=== PATIENT | female | born 1940 | race Caucasian/White ===

== ENCOUNTER 2019-08-13 17:08 | Inpatient (IN) | payer MEDICARE, OTHER ==
[~2019-08-13] VITALS: Ht 165.1 cm; Wt 93.0 kg
[~2019-08-13 17:08] MED LIST: SEPTDS PO
[2019-08-13] MEDS ORDERED: REMERON15 M2 PO (17:45)
[2019-08-13] MEDS ORDERED: BUSPIRONE10 MG PO (17:45)
[2019-08-13] MEDS ORDERED: B121000 MCG/1 IM (17:46)
[2019-08-13] MEDS ORDERED: FLONASE ALLERG9.9 ML NAS (17:47)
[2019-08-13] MEDS ORDERED: ASPIRIN81 M1 PO (17:47)
[2019-08-13] MEDS ORDERED: CLARITIN10 MG PO (17:48)
[2019-08-13] MEDS ORDERED: VENTOLIN 02.5 MG/3 M INH (17:49)
[2019-08-13] MEDS ORDERED: BIOFREEZE118 ML T (17:50)
[2019-08-13] MEDS ORDERED: VALIUM5 MG PO (17:50)
[2019-08-13] MEDS ORDERED: KENALOG 0.1%80 GM T (17:51)
[2019-08-13] MEDS ORDERED: VITAMIN D310000 UNIT PO (17:52)
[2019-08-13] MEDS ORDERED: NIZORAL AD SHA120 ML T (17:54)
[2019-08-13] MEDS ORDERED: METHOTREXATE2.5 M1 PO (17:55)
[2019-08-13] MEDS ORDERED: Mysoline50 MG PO (17:55)
[2019-08-13] MEDS ORDERED: MYRBETRIQ50 M1 PO (17:55)
[2019-08-13] MEDS ORDERED: VITAMIN C250 M2 PO (17:56)
[2019-08-13] MEDS ORDERED: SYSTANE ULTRA 010 M1 OU (17:57)
[2019-08-13] MEDS ORDERED: TOPCARE OMEPRAZ20 MG PO (17:57)
[2019-08-13] MEDS ORDERED: SYMB160 INH (17:58)
[2019-08-13] MEDS ORDERED: CRANBERRY250 MG PO (17:58)
[2019-08-13] MEDS ORDERED: LASIX40 MG PO (17:59)
[2019-08-13] MEDS ORDERED: COLACE100 MG PO (17:59)
[2019-08-13] MEDS ORDERED: KLOR-CON M2020 ME1 PO (18:00)
[2019-08-13] MEDS ORDERED: ROBITUSSIN-DM 110 ML PO (18:02)
[2019-08-13] MEDS ORDERED: SYSTANE 0.3-0.415 ML OU (18:03)
[2019-08-13] MEDS ORDERED: HYDROCORTISONE59 M1 T (18:03)
[2019-08-13] MEDS ORDERED: PROAIR HFA8.5 GM INH (18:04)
[2019-08-13 19:47] VITALS: BP 126/82
[2019-08-13 20:21] LABS: BASO % 0.6 % (0.0-1.0); EOS # 0.4 10*3/uL (0.0-0.4); EOS % 5.7 % (1.0-4.0); HEMATOCRIT 44.2 % (37.0-47.0); HEMOGLOBIN 13.6 g/dl (12.0-16.0); LYMPH # 1.4 10*3/uL (1.3-4.4); LYMPH % 19.9 % (27.0-41.0); MEAN CELL VOLUME 97.6 fl (81.0-99.0); MEAN CORPUSCULAR HGB CONC 30.8 g/dl (33.0-37.0); MEAN PLATELET VOLUME 9.9 fl (9.6-12.3); MONO # 0.4 10*3/uL (0.1-1.0); MONO % 5.6 % (3.0-9.0); NEUT # 4.6 10*3/uL (2.3-7.9); NEUT % 67.6 % (47.0-73.0); PLATELET COUNT AUTOMATED 407 10*3/uL (130-400); RED BLOOD COUNT 4.53 10*6/uL (4.10-5.10); RED CELL DISTRI WIDTH 16.9 % (0-14.5); WHITE BLOOD COUNT 6.8 10*3/uL (4.8-10.8)
[2019-08-13 20:51] LABS: ALBUMIN 3.1 gm/dl (3.1-4.5); CREATININE 1.16 mg/dL (0.55-1.02); POTASSIUM 4.1 mmol/L (3.5-5.1); TOTAL PROTEIN 6.9 gm/dL (6.4-8.2)
[2019-08-13 20:57] LABS: THYROID STIM HORMONE (HS) 1.58 uIU/ml (0.358-4.75)
[2019-08-13 20:58] LABS: VITAMIN D, 25-HYDROXY 50.3 ng/mL (30-100)
[2019-08-14 07:19] LABS: BILIRUBIN NEGATIVE (NEGATIVE); BLOOD NEGATIVE (NEGATIVE); CLARITY SL CLOUDY (CLEAR); COLOR YELLOW (YELLOW); GLUCOSE NEGATIVE (NEGATIVE); KETONE NEGATIVE (NEGATIVE); LEUKO ESTERASE 3+ (NEGATIVE); NITRITE POSITIVE (NEGATIVE); PH 7.5 (5.0-9.0); UROBILINOGEN 0.2 E.U./dl (0.2-1.0)
[2019-08-14 07:20] LABS: CHOLESTEROL 174 mg/dL (<200); TRIGLYCERIDES 129 mg/dl (<150); VLDL CHOLESTEROL 26 mg/dL (6-40)
[2019-08-14 07:20] LABS: BACTERIA 3+
[2019-08-14 07:21] LABS: HDL CHOLESTEROL 45 mg/dl (40-60); LDL CHOLESTEROL 103 mg/dL (9-159)
[2019-08-14 08:03] VITALS: BP 130/62
[2019-08-14 20:00] VITALS: BP 116/65
[2019-08-15 08:01] VITALS: BP 129/75
[2019-08-15 20:00] VITALS: BP 140/76
[2019-08-16 07:48] VITALS: BP 119/60
[2019-08-16 20:00] VITALS: BP 115/71
[2019-08-17 08:00] VITALS: BP 127/73
[2019-08-17 19:45] VITALS: BP 110/63
[2019-08-18 07:41] VITALS: BP 113/63
[2019-08-18 19:43] VITALS: BP 126/70
[2019-08-19 08:00] VITALS: BP 120/84
[2019-08-19 19:33] VITALS: BP 121/82
[2019-08-20 08:00] VITALS: BP 131/83
[2019-08-20 20:00] VITALS: BP 121/72
[2019-08-21 08:00] VITALS: BP 124/88
[2019-08-21 19:40] VITALS: BP 125/86
[2019-08-22] MEDS ORDERED: NORTRIPTYLINE H50 M1 PO (07:49)
[2019-08-22] MEDS ORDERED: MINIPRESS1 M1 PO (07:49)
[2019-08-22 07:58] VITALS: BP 112/65
== END 2019-08-22 16:55 | DRG 885 ==
LOC: 3N 17:08
PROVIDERS: ADMIT Psychiatry & Neurology Psychiatry
DX: F33.2 Major depressive disorder, recurrent severe without psychotic features (principal); F23 Brief psychotic disorder; M19.90 Unspecified osteoarthritis, unspecified site; F34.1 Dysthymic disorder; M21.371 Foot drop, right foot; M51.36 Other intervertebral disc degeneration, lumbar region; H90.3 Sensorineural hearing loss, bilateral; F43.10 Post-traumatic stress disorder, unspecified; M21.372 Foot drop, left foot; K59.00 Constipation, unspecified; E78.5 Hyperlipidemia, unspecified; F41.9 Anxiety disorder, unspecified; K21.9 Gastro-esophageal reflux disease without esophagitis; Z96.653 Presence of artificial knee joint, bilateral; N32.81 Overactive bladder; I10 Essential (primary) hypertension; J45.20 Mild intermittent asthma, uncomplicated; Z88.6 Allergy status to analgesic agent; Z91.041 Radiographic dye allergy status; Z88.8 Allergy status to other drugs, medicaments and biological substances; Z91.013 Allergy to seafood; Z90.710 Acquired absence of both cervix and uterus; Z79.899 Other long term (current) drug therapy; Z79.82 Long term (current) use of aspirin